=== PATIENT | female | born 1970 | race Caucasian/White ===

== ENCOUNTER → 2020-08-08 | Day surgery (SDC) | payer OTHER ==
[~2020-08-08] MED LIST: ADIPEX-P37.5 M1 PO; DEXILANT60 MG PO; IBUPROFEN800 MG PO; REQUIP PO
[2020-08-08 09:21] LABS: HEMOGLOBIN 12.9 gm/dl (12.3-15.3); RED BLOOD COUNT 4.21 M/UL (4.00-5.10); WHITE BLOOD COUNT 7.2 K/UL (4.5-11.0)
== END | disposition home or self-care (01) ==
LOC: OR 08:41
PROVIDERS: Obstetrics & Gynecology
DX: D25.9 Leiomyoma of uterus, unspecified (principal); N84.0 Polyp of corpus uteri; K21.9 Gastro-esophageal reflux disease without esophagitis; M19.90 Unspecified osteoarthritis, unspecified site; G25.81 Restless legs syndrome; Z91.041 Radiographic dye allergy status; Z91.013 Allergy to seafood; Z88.8 Allergy status to other drugs, medicaments and biological substances; Z79.899 Other long term (current) drug therapy
CPT/HCPCS: 36415; 81001; 84703; 85025; J0690; J1100; J1885; J2001; J2250; J2405; J2704; J2795; J3010; J7030; J7120